=== PATIENT | male | born 1995 | race Two or more races ===

== ENCOUNTER 2019-06-18 05:50 | Emergency (ER) | payer OTHER ==
[~2019-06-18] VITALS: Ht 175.3 cm; Wt 86.2 kg
[2019-06-18 05:53] VITALS: BP 143/83
[2019-06-18 06:28] LABS: BASOPHILS % (AUTO) 0.5 % (0.0-2.0); HEMATOCRIT 39.8 % (42.0-52.0); LYMPHOCYTES % (AUTO) 40.3 % (20.0-45.0); MEAN CORPUSCULAR VOLUME 83 FL (80-99); MONOCYTES % (AUTO) 4.6 % (1.0-10.0); NEUTROPHILS % (AUTO) 53.6 % (45.0-75.0); PLATELET COUNT 162 K/UL (150-450); RED BLOOD COUNT 4.77 M/UL (4.70-6.10); RED CELL DISTRIBUTION WIDTH 10.9 % (11.6-14.8); WHITE BLOOD COUNT 7.7 K/UL (4.8-10.8)
[2019-06-18 06:34] LABS: ANION GAP 10 mmol/L (5-15); BLOOD UREA NITROGEN 18 mg/dL (7-18); CARBON DIOXIDE 29 MMOL/L (21-32); CHLORIDE 103 MMOL/L (98-107); CREATININE 1.2 MG/DL (0.55-1.30); POTASSIUM 3.5 MMOL/L (3.5-5.1); SODIUM 142 MMOL/L (136-145)
--- NOTE | 2019-06-18 06:37 | Emergency Room Report ---
History of Present Illness General Chief Complaint: Overdose Source: Patient Present Illness [facility] Paramedics were called for patient was altered mental status. He had taken morphine that apparently was laced with fentanyl. He was taking morphine that he bought on the street for right forearm fracture about a month ago. He took the cast off and he has had some continued pain there. Patient woke up with Narcan in the field. According to the sales and marketing analyst report he was unconscious on the bathroom floor with some white powdery substance in a baggy. He had pinpoint pupils and respiratory rate was less than 8. Narcan was administered nasally. Which revealed sinus tachycardia with a right bundle branch block Patient is getting a cold and has a mild cough. The cough is not worsened at this time. He denies fevers or chills. Patient has a history of hepatitis C. He denies HIV. No chest pain, palpitations, nausea, vomiting, diarrhea, dysuria, abdominal pain , shortness of breath, rashes, depression, anxiety, dizziness, headache. Allergies: Coded Allergies: No Known Allergies (Unverified , 06/18/19) Patient History Past Medical History: see triage record, other - Hepatitis C Social History: Reports: smoking, drug use Social History Narrative Living on the streets Reviewed Nursing Documentation: PMH: Agreed; PSxH: Agreed Nursing Documentation-PMH Past Medical History: No Stated History Review of Systems All Other Systems: negative except mentioned in HPI Physical Exam Vital Signs Date Time Temp Pulse Resp B/P (MAP) Pulse Ox O2 Delivery O2 Flow Rate FiO2 06/18/19 05:43 98.1 98 18 143/83 (103) 100 Room Air 06/18/19 05:53 2.0 Sp02 EP Interpretation: reviewed, normal General Appearance: well appearing, no apparent distress, GCS 15 Head: normocephalic Eyes: bilateral eye normal inspection, bilateral eye PERRL, bilateral eye EOMI ENT: moist mucus membranes Neck: supple Respiratory: lungs clear, normal breath sounds, other - occasional cough Cardiovascular #1: regular rate, rhythm, no edema Cardiovascular #2: 2+ radial (R) Gastrointestinal: normal inspection, non tender, no mass, non-distended, decreased bowel sounds Musculoskeletal: back normal, normal range of motion, gait/station normal, tender - mid R forearm Neurologic: alert, oriented x3, grossly normal Psychiatric: mood/affect normal, no suicidal/homicidal ideation Skin: warm/dry, other - Tattoos Medical Decision Making Diagnostic Impression: Primary Impression: Opiate overdose Qualified Codes: T40.601A - Poisoning by unspecified narcotics, accidental ( unintentional), initial encounter Additional Impressions: Substance abuse Right upper lobe pneumonia Qualified Codes: J18.9 - Pneumonia, unspecified organism ER Course Patient presents post opiate overdose and receiving Narcan in the field. Differential includes hypoxic injury to the heart, pulmonary edema, aspiration pneumonia, opiate excess amongst others. Evaluation with EKG, chest x-ray and labs. The patient will receive IV hydration. Patient needs to be monitored for period of time to ensure that when the Narcan wears off he does not become obtunded again. Patient is placed on a monitoring tech. EKG normal sinus rhythm with right bundle branch block nonspecific ST-T wave changes no injury. Patient sat 96% on 2 liters. Trial on room air. RUL infiltrate. BC, lactic acid and antibiotics. O2 sat drops to 92% on RA. Oxygen ordered. Lactic acid 2.0. Contacted Dr. Pasquale Fry. Patient stable for transfer. Laboratory Tests Test 06/18/19 06:07 06/18/19 07:25 White Blood Count 7.7 K/UL (4.8-10.8) Red Blood Count 4.77 M/UL (4.70-6.10) Hemoglobin 14.0 G/DL (14.2-18.0) L Hematocrit 39.8 % (42.0-52.0) L Mean Corpuscular Volume 83 FL (80-99) Mean Corpuscular Hemoglobin 29.4 PG (27.0-31.0) Mean Corpuscular Hemoglobin Concent 35.3 G/DL (32.0-36.0) Red Cell Distribution Width 10.9 % (11.6-14.8) L Platelet Count 162 K/UL (150-450) Mean Platelet Volume 7.8 FL (6.5-10.1) Neutrophils (%) (Auto) 53.6 % (45.0-75.0) Lymphocytes (%) (Auto) 40.3 % (20.0-45.0) Monocytes (%) (Auto) 4.6 % (1.0-10.0) Eosinophils (%) (Auto) 1.0 % (0.0-3.0) Basophils (%) (Auto) 0.5 % (0.0-2.0) Sodium Level 142 MMOL/L (136-145) Potassium Level 3.5 MMOL/L (3.5-5.1) Chloride Level 103 MMOL/L (98-107) Carbon Dioxide Level 29 MMOL/L (21-32) Anion Gap 10 mmol/L (5-15) Blood Urea Nitrogen 18 mg/dL (7-18) Creatinine 1.2 MG/DL (0.55-1.30) Estimate Glomerular Filtration Rate > 60 mL/min (>60) Glucose Level 169 MG/DL (74-106) H Calcium Level 9.0 MG/DL (8.5-10.1) Total Bilirubin 0.5 MG/DL (0.2-1.0) Aspartate Amino Transferase (AST) 66 U/L (15-37) H Alanine Aminotransferase (ALT) 150 U/L (12-78) H Alkaline Phosphatase 74 U/L (46-116) Total Protein 8.3 G/DL (6.4-8.2) H Albumin 4.0 G/DL (3.4-5.0) Globulin 4.3 g/dL Albumin/Globulin Ratio 0.9 (1.0-2.7) L Salicylates Level 0.6 ug/mL (2.8-20) L Urine Opiates Screen Positive (NEGATIVE) H Acetaminophen Level < 2 MCG/ML (10-30) L Urine Barbiturates Screen Negative (NEGATIVE) Phencyclidine (PCP) Screen Negative (NEGATIVE) Urine Amphetamines Screen Positive (NEGATIVE) H Urine Benzodiazepines Screen Negative (NEGATIVE) Urine Cocaine Screen Negative (NEGATIVE) Urine Marijuana (THC) Screen Positive (NEGATIVE) H Serum Alcohol < 3 mg/dL Lactic Acid Level 2.00 mmol/L (0.4-2.0) EKG Diagnostic Results Rate: normal Rhythm: NSR ST Segments: no acute changes - Bundle-branch block Rhythm Strip Diag. Results EP Interpretation: yes Rhythm: NSR, no PVC's, no ectopy Chest X-Ray Diagnostic Results Chest X-Ray Diagnostic Results : Chest X-Ray Ordered: Yes # of Views/Limited/Complete: 1 View Indication: Other EP Interpretation: Yes Interpretation: no effusion, no pneumothorax, other - RUL infiltrate Impression: Other Electronically Signed by: Electronically signed by Mikie Dutta MD Last Vital Signs Date Time Temp Pulse Resp B/P (MAP) Pulse Ox O2 Delivery O2 Flow Rate FiO2 06/18/19 11:00 97.8 76 18 120/80 98 Room Air 06/18/19 05:53 2.0 Status: improved Disposition: XFER SHT-TRM HOSP Condition: Serious Scripts Naloxone HCl (Narcan) 4 Mg Muddy 4 MG NS NEEDED, #1 SPRAY 1 Refill Prov: Mikie Dutta MD 06/18/19 Referrals: NOT CHOSEN IPA/,REFERRING (PCP) Mikie Dutta MD Jun 18, 2019 06:37
[2019-06-18 06:38] LABS: ALANINE AMINOTRANSFERASE 150 U/L (12-78); ALBUMIN/GLOBULIN RATIO 0.9 (1.0-2.7); ALKALINE PHOSPHATASE 74 U/L (46-116); ASPARTATE AMINO TRANSFERASE 66 U/L (15-37); BILIRUBIN,TOTAL 0.5 MG/DL (0.2-1.0)
[2019-06-18] MEDS ORDERED: NARCAN4 MG NS (06:57)
[2019-06-18 07:10] VITALS: BP 136/68
[2019-06-18] MEDS ORDERED: Vancomycin 1 GM in NS 275 ML IVPB ONE (07:30)
[2019-06-18] MEDS ORDERED: Piperacillin/Tazobactam 3.375 GM in NS 110 ML IVPB ONE (07:30)
[2019-06-18 09:03] VITALS: BP 116/65
--- NOTE | 2019-06-18 10:05 | Diagnostic Imaging Report ---
Indication: Cough Technique: One view of the chest Comparison: none Findings: There are bilateral perihilar interstitial and airspace infiltrates versus edema, right greater than left. The pleural spaces are clear. Heart size is normal. Impression: Bilateral right greater than left perihilar infiltrates versus edema This agrees with the preliminary interpretation provided by the emergency room physician
[2019-06-18 11:00] VITALS: BP 120/80
--- NOTE | 2019-06-18 15:19 | Cardiology Report ---
APPROVED REPORT EKG Measurement Heart [id number] ID [id number] Normal sinus rhythm Right bundle branch block Abnormal ECG
== END 2019-06-18 11:03 | disposition short-term general hospital (02) ==
LOC: EDBD 05:50 → EMR 06:21
DX: T40.601A Poisoning by unspecified narcotics, accidental (unintentional), initial encounter (principal); F19.10 Other psychoactive substance abuse, uncomplicated; J18.9 Pneumonia, unspecified organism; X58.XXXA Exposure to other specified factors, initial encounter; Y92.9 Unspecified place or not applicable; Z86.19 Personal history of other infectious and parasitic diseases; I45.10 Unspecified right bundle-branch block
CPT/HCPCS: 36415; 71045; 80053; 80307; 83605; 85025; 87040; 93005; 96365; 96368; 99284; G0480; J2543; J3370; J7040; J7050